=== PATIENT | male | born 1980 | race American Indian/Alaskan Native ===

== ENCOUNTER 2017-11-03 09:40 | Emergency (ER) | payer OTHER ==
[2017-11-03 09:46] VITALS: BMI 25.8
[2017-11-03 09:52] VITALS: BP 116/78; PULSE 77; RESP 18; TEMP 98.6; O2SAT 99
[2017-11-03] MEDS ORDERED: cefTRIAXone (Rocephin) 250 mg Inj IM STA (10:11)
--- NOTE | 2017-11-03 10:37 | C.PDOC ---
History Of Present Illness 37 year old male presents with 9 day history of dysuria and penile discharge. Patient is sexually active. Discharge is clear. Patient reports history of chlamydia in the past. No fever or testicular pain. Time Seen by Provider: 11/03/17 10:10 Chief Complaint (Nursing): Male Genitourinary History Per: Patient History/Exam Limitations: no limitations Onset/Duration Of Symptoms: Days (x9) Current Symptoms Are (Timing): Still Present Past Medical History Reviewed: Historical Data, Nursing Documentation, Vital Signs Vital Signs: Last Vital Signs Temp 98.6 F 11/03/17 09:46 Pulse 77 11/03/17 09:46 Resp 18 11/03/17 09:46 BP 116/78 11/03/17 09:46 Pulse Ox 99 11/03/17 10:41 - Medical History PMH: Bronchitis, Sexually Transmitted Disease (chlamydia) Surgical History: No Surg Hx Family History: States: No Known Family Hx - Social History Hx Alcohol Use: Yes Hx Substance Use: Yes - Immunization History Hx Tetanus Toxoid Vaccination: No Hx Influenza Vaccination: No Hx Pneumococcal Vaccination: No Review Of Systems Genitourinary: Positive for: Dysuria, Penile Discharge Physical Exam - Physical Exam Appears: Non-toxic, No Acute Distress Skin: Normal Color, Warm, Dry Head: Atraumatic, Normacephalic Eye(s): bilateral: Normal Inspection Neck: Normal ROM, Supple Chest: Symmetrical Cardiovascular: Rhythm Regular Respiratory: Normal Breath Sounds, No Rales, No Rhonchi, No Wheezing Gastrointestinal/Abdominal: Soft, No Tenderness, No Distention Male Genital: Normal Inspection (with both testes descended), Circumcised, No Other (rash, lesions, or adenopathy) Neurological/Psych: Oriented x3, Normal Speech ED Course And Treatment O2 Sat by Pulse Oximetry: 99 (RA) Pulse Ox Interpretation: Normal Medical Decision Making Medical Decision Making: Clinical Impression: Urethritis Patient treated in the ED with antibiotics. Chlamydia/GC and urine culture ordered. Patient advised no sex for 1 week and will follow up with the clinic in 1-2 days. Disposition Counseled Patient/Family Regarding: Diagnosis, Need For Followup, Rx Given - Disposition Referrals: [facility] [Outside] Disposition: HOME/ ROUTINE Disposition Time: 10:41 Condition: STABLE Additional Instructions: follow up with your doctor in 2 days call to make an appointment take medications as prescribed return to ER if symptoms worsens or progress no sex for one week have your partner evaluated and treated Instructions: Urethritis Forms: General Discharge Instructions, [facility] (Slovenian) - POA Present On Arrival: None - Clinical Impression Clinical Impression: Urethritis - Scribe Statement The provider has reviewed the documentation as recorded by the Scribe (Bryanna Avila) Provider Attestation: All medical record entries made by the Scribe were at my direction and personally dictated by me. I have reviewed the chart and agree that the record accurately reflects my personal performance of the history, physical exam, medical decision making, and the department course for this patient. I have also personally directed, reviewed, and agree with the discharge instructions and disposition.
[2017-11-03 11:49] LABS: SQUAMOUS EPITHIAL < 1 /hpf (0-5); URINE BILIRUBIN NEGATIVE (NEGATIVE); URINE BLOOD NEGATIVE (NEGATIVE); URINE CLARITY Clear (Clear); URINE COLOR Yellow (YELLOW); URINE GLUCOSE (UA) NORMAL (Normal); URINE LEUKOCYTE ESTERASE NEG Leu/uL (Negative); URINE NITRATE NEGATIVE (NEGATIVE); URINE PROTEIN NEGATIVE (NEGATIVE); URINE UROBILINOGEN NORMAL mg/dL (0.2-1.0)
== END 2017-11-03 11:03 | disposition home or self-care (01) ==
LOC: C.ER 09:40
DX: N34.2 Other urethritis (principal)
CPT/HCPCS: 81001; 87086; 87491; 87591; 96372; 99284; J0696

== ENCOUNTER 2017-12-02 15:00 | Emergency (ER) | payer OTHER ==
[2017-12-02 15:00] VITALS: BMI 25.8
[2017-12-02 15:15] VITALS: BP 126/68; PULSE 78; RESP 20; TEMP 97.7; O2SAT 99
--- NOTE | 2017-12-02 15:41 | C.PDOC ---
History Of Present Illness 37 year old male presents to the emergency department with complaints of a itching and burning sensation upon urination. Patient was first seen by his primary care physician after giving anal sex, presenting with the same complaints afterwards. The primary care physician administered a one day treatment of "blue pills", after which results didn't change. Following that, the patient states he come to the ER here, where he received a vaccination for chlamydia and "two pills". On the final day of his antibiotic course, the patient states he smoked marijuana which resulted in a sharp pain in his right lower flank which radiated to the groin and "pulled his penis". Patient describes his urination as frequent, stating that he gets up multiple times in the night, and qualifies it as dark, tingling, burning, and dribbling. He also describes he experienced testicular pain following masturbation. Patient states that he feels like his symptoms are slowly coming back despite the treatment he received. Patient denies pus and discharge for the duration of the month. Patient's social history consists of smoking marijuana and taking about 2-3 shots per day, but denies smoking cigarettes. Patient's family history consists of prostate cancer, diabetes, and asthma. Time Seen by Provider: 12/02/17 15:14 Chief Complaint (Nursing): Male Genitourinary History Per: Patient History/Exam Limitations: no limitations Onset/Duration Of Symptoms: Days (1 month) Current Symptoms Are (Timing): Still Present Quality Of Discomfort: Burning, "Pain", Other (itching) Associated Symptoms: Urinary Symptoms (burning and itching while urination) Past Medical History Reviewed: Historical Data, Nursing Documentation, Vital Signs Vital Signs: Last Vital Signs Temp 97.7 F 12/02/17 15:11 Pulse 78 12/02/17 15:11 Resp 20 12/02/17 15:11 BP 126/68 12/02/17 15:11 Pulse Ox 99 12/02/17 15:51 - Medical History PMH: Bronchitis, Sexually Transmitted Disease (chlamydia) Surgical History: No Surg Hx Family History: States: Diabetes, Other - Social History Hx Tobacco Use: No Hx Alcohol Use: Yes (2-3 shots per day) Hx Substance Use: Yes (marijuana use) - Immunization History Hx Tetanus Toxoid Vaccination: No Hx Influenza Vaccination: No Hx Pneumococcal Vaccination: No Review Of Systems Except As Marked, All Systems Reviewed And Found Negative. Genitourinary: Positive for: Dysuria (burning and itching upon urinating), Frequency, Penile Pain. Negative for: Penile Discharge Musculoskeletal: Positive for: Back Pain (right lower flank) Physical Exam - Physical Exam Appears: Well, Non-toxic Skin: Normal Color Head: Atraumatic, Normacephalic Eye(s): bilateral: Normal Inspection Ear(s): Bilateral: Normal Nose: Normal Oral Mucosa: Moist Neck: Normal, Supple Cardiovascular: Rhythm Regular Respiratory: Normal Breath Sounds Gastrointestinal/Abdominal: Normal Exam Back: Normal Inspection Male Genital: Normal Inspection, No Other (discharge, genital lesion) Neurological/Psych: Oriented x3, Normal Speech, Normal Cognition ED Course And Treatment O2 Sat by Pulse Oximetry: 99 (RA) Pulse Ox Interpretation: Normal Medical Decision Making Medical Decision Making: Plan: * Urinalysis * Urine Culture * Chlamydia/GC RNA Disposition Counseled Patient/Family Regarding: Studies Performed, Diagnosis, Need For Followup, Rx Given - Disposition Referrals: Saul Alatorre MD [Staff Provider] - Disposition: HOME/ ROUTINE Disposition Time: 16:46 Condition: STABLE Additional Instructions: Mr. Jose, thank you for letting us take care of you today. Return to the ER if your symptoms worsen. The ER doctor that took care of you today was: Dr. Mckinney Take the medication listed below as prescribed. You need to follow up with our on-call urologist; his name is Dr. Alatorre. Please call the phone number listed below to make an appointment with Dr. Alatorre's office. We also took a urine culture today (and other cultures). It will take 1 or 2 days usually for the culture results to come back. Prescriptions: Ciprofloxacin [Cipro] 1 tab PO BID #14 tab Clotrimazole 1% Cream [Lotrimin 1% CREAM] 1 applic EXT BID #1 tube Forms: [employer] (Greenlandic) Print Language: SOMALI - POA Present On Arrival: None - Clinical Impression Clinical Impression: Nongonococcal urethritis - Scribe Statement The provider has reviewed the documentation as recorded by the Scribe (Randy Jordan) Provider Attestation: All medical record entries made by the Scribe were at my direction and personally dictated by me. I have reviewed the chart and agree that the record accurately reflects my personal performance of the history, physical exam, medical decision making, and the department course for this patient. I have also personally directed, reviewed, and agree with the discharge instructions and disposition.
[2017-12-02 15:50] LABS: URINE BILIRUBIN NEGATIVE (NEGATIVE); URINE BLOOD NEGATIVE (NEGATIVE); URINE CLARITY Clear (Clear); URINE COLOR Yellow (YELLOW); URINE GLUCOSE (UA) NORMAL (Normal); URINE LEUKOCYTE ESTERASE NEG Leu/uL (Negative); URINE PROTEIN NEGATIVE (NEGATIVE)
== END 2017-12-02 16:59 | disposition home or self-care (01) ==
LOC: C.ER 15:00
DX: N34.1 Nonspecific urethritis (principal)

== ENCOUNTER 2018-01-19 09:16 | Emergency (ER) | payer OTHER ==
[2018-01-19 09:17] VITALS: BMI 25.8
[2018-01-19 09:29] VITALS: TEMP 97.9
--- NOTE | 2018-01-19 09:47 | C.PDOC ---
History Of Present Illness 37 yo male, no prior hx presents with dysuria. as per pt, has had symptoms > 1mo. seen previously, dc home with cipro. daughter flushed antibiotic down toilet 1 mo ago, after half course. pt states started taking herbal remedy. has intermittant flank pain and testicular pain, none now. declines any imaging, specifically requesting ua test and dc home. Time Seen by Provider: 01/19/18 09:38 Chief Complaint (Nursing): Male Genitourinary Past Medical History Reviewed: Historical Data, Nursing Documentation, Vital Signs Vital Signs: Last Vital Signs Temp 97.9 F 01/19/18 10:58 Pulse 77 01/19/18 10:58 Resp 18 01/19/18 10:58 BP 119/68 01/19/18 10:58 Pulse Ox 96 01/19/18 10:58 - Medical History PMH: Bronchitis, Sexually Transmitted Disease (chlamydia) Family History: States: Diabetes - Social History Hx Tobacco Use: No Hx Alcohol Use: Yes (2-3 shots per day) Hx Substance Use: Yes (marijuana use) - Immunization History Hx Tetanus Toxoid Vaccination: No Hx Influenza Vaccination: No Hx Pneumococcal Vaccination: No Review Of Systems Genitourinary: Positive for: Dysuria, Scrotal Pain (resolved) Physical Exam - Physical Exam Appears: Well, No Acute Distress Skin: Normal Color, Warm, Dry Eye(s): bilateral: Normal Inspection, PERRL, EOMI Nose: Normal Throat: Normal Neck: Normal Cardiovascular: Rhythm Regular Respiratory: Normal Breath Sounds Gastrointestinal/Abdominal: Normal Exam, No Soft, No Tenderness, No Guarding, No Rebound, Other (no testicular ttp swelling) Back: Normal Inspection Extremity: Normal ROM ED Course And Treatment O2 Sat by Pulse Oximetry: 100 Medical Decision Making Medical Decision Making: pt declines any imaging, "needs to go home". notified of microscopic hematuria, strongly encouraged outpt fu . Disposition - Disposition Referrals: Chepe Lomas Jr., MD [Staff Provider] - [facility] [Outside] [facility] [Outside] [facility] [Outside] Disposition: HOME/ ROUTINE Disposition Time: 01:30 Condition: STABLE Additional Instructions: you are declining imaging. please follow up with your doctor/clinic and specialist. return to any er with worsening symptoms or concerns. Instructions: Dysuria, Adult (DC) Forms: [employer] (Egyptian) - Clinical Impression Clinical Impression: Dysuria
[2018-01-19 10:23] LABS: SQUAMOUS EPITHIAL < 1 /hpf (0-5); URINE BILIRUBIN NEGATIVE (NEGATIVE); URINE BLOOD 2+ (NEGATIVE); URINE CLARITY Clear (Clear); URINE COLOR Yellow (YELLOW); URINE GLUCOSE (UA) NORMAL (Normal); URINE LEUKOCYTE ESTERASE NEG Leu/uL (Negative); URINE PROTEIN NEGATIVE (NEGATIVE); URINE UROBILINOGEN NORMAL mg/dL (0.2-1.0)
[2018-01-19 10:59] VITALS: BP 119/68; PULSE 77; RESP 18
[2018-01-19 13:34] VITALS: O2SAT 100
== END 2018-01-19 10:59 | disposition home or self-care (01) ==
LOC: C.ER 09:16
DX: R30.0 Dysuria (principal)

== ENCOUNTER 2018-03-22 13:14 | Emergency (ER) | payer OTHER ==
[2018-03-22 13:14] VITALS: BMI 25.8
[2018-03-22 13:30] VITALS: BP 125/64; PULSE 75; RESP 16; TEMP 98.4; O2SAT 95
--- NOTE | 2018-03-22 13:43 | C.PDOC ---
History Of Present Illness 37 y/o male presents to the ER complaining of right wrist pain since he tripped and fell on his right hand 1 month ago. Patient states that he did not seek medical attention at the time. Pt notes that he started doing push ups recently and when he puts pressure on it , he has pain. Denies having weakness and numbness. Time Seen by Provider: 03/22/18 13:32 Chief Complaint (Nursing): Upper Extremity Problem/Injury History Per: Patient History/Exam Limitations: no limitations Onset/Duration Of Symptoms: Days Current Symptoms Are (Timing): Still Present Severity: Moderate Past Medical History Reviewed: Historical Data, Nursing Documentation, Vital Signs Vital Signs: Last Vital Signs Temp 98.4 F 03/22/18 13:28 Pulse 75 03/22/18 13:28 Resp 16 03/22/18 13:28 BP 125/64 03/22/18 13:28 Pulse Ox 95 03/22/18 15:42 - Medical History PMH: Bronchitis, Sexually Transmitted Disease (chlamydia) Surgical History: No Surg Hx Family History: States: Diabetes - Social History Hx Tobacco Use: No Hx Alcohol Use: Yes (2-3 shots per day) Hx Substance Use: Yes (marijuana use) - Immunization History Hx Tetanus Toxoid Vaccination: No Hx Influenza Vaccination: No Hx Pneumococcal Vaccination: No Review Of Systems Except As Marked, All Systems Reviewed And Found Negative. Musculoskeletal: Positive for: Other (right wrist pain) Neurological: Negative for: Weakness, Numbness Physical Exam - Physical Exam Appears: Non-toxic, No Acute Distress Skin: Normal Color, Warm, Dry Head: Atraumatic, Normacephalic Eye(s): bilateral: Normal Inspection, EOMI Nose: Normal Oral Mucosa: Moist Neck: Normal ROM, Supple Chest: Symmetrical Respiratory: No Accessory Muscle Use Extremity: Normal ROM, Tenderness (tenderness to radial aspect of right wrist), Capillary Refill (<2 sec), Swelling (mild swelling to radial aspect of right wrist), Other ((+) healed wound to the mid proximal palm) Pulses: Left Radial: Normal, Right Radial: Normal Neurological/Psych: Oriented x3, Normal Speech, Normal Motor, Normal Sensation ED Course And Treatment O2 Sat by Pulse Oximetry: 95 (RA) Pulse Ox Interpretation: Normal - Other Rad X-Ray- Right Wrist X-Ray: Viewed By Me, Read By Radiologist Interpretation: Date of service: 03/22/2018. PROCEDURE: Right Wrist Radiographs. HISTORY: pain. COMPARISON: None. FINDINGS: BONES: Normal. No fracture. JOINTS: Normal. No dislocation. SOFT TISSUES: Normal. OTHER FINDINGS: None. IMPRESSION: Normal right wrist radiographs. Progress Note: Patient treated with Motrin PO. X-Ray- Right Wrist ordered and reviewed. Immobilizer splint has been applied by certified control systems technician. Patient has been discharged and instructed to follow up with hand specialist in 2 days. Disposition - Disposition Referrals: Latasha Wong MD [Staff Provider] - Disposition: HOME/ ROUTINE Disposition Time: 13:42 Condition: STABLE Additional Instructions: Follow up with hand specialist in 1-2 days. Rest, ice and elevate the area. Instructions: Wrist Sprain (DC) Forms: [employer] (Japanese) - Clinical Impression Clinical Impression: Wrist sprain - PA / SUPERVISOR SOUND TECHNICIAN / Resident Statement MD/DO has reviewed & agrees with the documentation as recorded. - Scribe Statement The provider has reviewed the documentation as recorded by the Santiago Moreno Provider Attestation All medical record entries made by the Scribe were at my direction and personally dictated by me. I have reviewed the chart and agree that the record accurately reflects my personal performance of the history, physical exam, medical decision making, and the department course for this patient. I have also personally directed, reviewed, and agree with the discharge instructions and disposition.
--- NOTE | 2018-03-22 14:23 | RAD ---
Date of service: 03/22/2018 PROCEDURE: Right Wrist Radiographs. HISTORY: pain COMPARISON: None. FINDINGS: BONES: Normal. No fracture. JOINTS: Normal. No dislocation. SOFT TISSUES: Normal. OTHER FINDINGS: None. IMPRESSION: Normal right wrist radiographs.
== END 2018-03-22 14:15 | disposition home or self-care (01) ==
LOC: C.ER 13:14
DX: S63.501A Unspecified sprain of right wrist, initial encounter (principal); W01.0XXA Fall on same level from slipping, tripping and stumbling without subsequent striking against object, initial encounter; Y92.9 Unspecified place or not applicable